=== PATIENT | male | born 1995 | race Caucasian/White ===

== ENCOUNTER 2017-06-14 20:49 | Emergency (ER) | payer OTHER | END 2017-06-14 23:29 | disposition home or self-care (01) | LOC: M ED 20:49 | DX: S06.0X0A Concussion without loss of consciousness, initial encounter (principal); W22.8XXA Striking against or struck by other objects, initial encounter; Y92.9 Unspecified place or not applicable; Y93.9 Activity, unspecified; Y99.1 Military activity | CPT/HCPCS: 70450 ==

== ENCOUNTER 2019-04-16 22:43 | Emergency (ER) | payer OTHER ==
[~2019-04-16] VITALS: Ht 175.3 cm; Wt 103.0 kg
[~2019-04-16 22:43] MED LIST: pain reliever PO
[2019-04-16 22:44] VITALS: BP 146/83
[2019-04-17] MEDS ORDERED: ANEC4CRE3 TOP (01:21)
[2019-04-17] MEDS ORDERED: NAPR-837 PO (01:21)
[2019-04-17] MEDS ORDERED: LIDOCAINE 4% CREAM 5GM (LMX4) TOP ONE (01:30)
[2019-04-17] MEDS ORDERED: NAPROXEN 250 MG TAB PO ONE (01:30)
--- NOTE | 2019-04-17 07:57 | REP ---
Clinical: Right hip pain with trauma Technique: Frontal view of the pelvis with neutral and frog lateral views of the right hip. Findings: Osseous structures and joint spaces are intact and normal. Hip joints appear symmetric on frontal pelvic radiograph. No acute fracture or dislocation. No significant degenerative or congenital abnormalities are appreciated. Surrounding soft tissues are unremarkable. Impression: Normal pelvis and right hip series. Electronically Signed by Eder Simpson MD 04/17/2019 07:48 A
== END 2019-04-17 01:41 | disposition home or self-care (01) ==
LOC: M ED 22:43
DX: S79.911A Unspecified injury of right hip, initial encounter (principal); M25.551 Pain in right hip; W00.0XXA Fall on same level due to ice and snow, initial encounter; Y92.410 Unspecified street and highway as the place of occurrence of the external cause; Z79.899 Other long term (current) drug therapy